=== PATIENT | male | born 1945 | race Caucasian/White ===

== ENCOUNTER 2018-12-13 18:01 | Inpatient (IN) ==
[2018-12-13] MEDS ORDERED: Sod Chloride 0.9% Inj 1,000 ML IV.SIG ONE (18:02)
[2018-12-13] MEDS ORDERED: fentaNYL Citrate Inj 100 MCG/2 ML Ampul IV.PUSH ONE (18:02)
--- NOTE | 2018-12-13 18:10 | ED ---
HPI General Chief complaint: Fall Stated complaint: fall Time Seen by Provider: 12/13/18 18:02 Source: patient, family and EMS Mode of arrival: EMS History of Present Illness HPI narrative: 73yM brought in by EMS after falling off of a ladder at home. The patient states that he was working on a ladder and fell approximately 5 feet. He is not sure if he hit his head but admits to LOC. His daughter heard him fall and called EMS. He currently complains of left back/ shoulder pain. He denies headache, neck pain, chest or abdominal pain. He does not take any anticoagulants or antiplatelets. He thinks his last tetanus booster was 3-4 years ago. Related Data Home Medications Medication Instructions Recorded Confirmed Unable to Obtain Home Meds 12/13/18 12/13/18 Allergies Allergy/AdvReac Type Severity Reaction Status Date / Time No Known Allergies Allergy Verified 12/13/18 18:10 Review of Systems ROS: all other systems reviewed are negative Constitutional Denies fever(s) Eyes Denies blurry vision ENT Denies nasal congestion Cardiovascular Denies chest pain Respiratory Denies cough Gastrointestinal Denies nausea Genitourinary Denies dysuria Musculoskeletal Reports back pain Neurologic Denies confusion Psychiatric Denies confusion PMFSH History History Provided By: Patient Social History Social History Substance History: No History of Abuse Second Hand Smoke Exposure: No Smoking Status: Never smoker How Often Do You Have a Drink Containing Alcohol: Never Recent Travel in [facility] within the Last 8 Weeks: No Recent Out of Country Travel within the Last 8 Weeks: No Exam Const General: healthy appearing and no acute distress [facility] Head: normocephalic and atraumatic Face and sinus: normal facial exam Other: No raccoon eyes or Zelaya's sign No epistaxis or septal hematoma No intraoral trauma Eyes General: appearance normal, both eyes and all related structures Pupils: PERRL Neck Other: No midline C spine tenderness, cervical collar maintained due to distracting injury and mechanism Chest Chest: normal inspection of the chest Resp Effort & Inspection: normal respiratory effort Auscultation: no rhonchi and no wheezes Cardio Rate: regular rate Rhythm: regular rhythm GI Inspection: non-distended Palpation: soft and nontender Back/Spine/Pelvis Other: No midline thoracolumbar tenderness or step-off (+) left thoracic paraspinal tenderness Pelvis stable, leg lengths equal Skin Other: Superficial abrasions to right elbow, left lower leg, right lower leg; no active bleeding Neuro General: alert, awake, oriented x3 and no focal motor deficits Other: GCS 15 Psych Affect: normal affect Course Initial Documented Vital Signs Temperature 97.8 F 12/13/18 18:05 Pulse Rate 60 12/13/18 18:05 Respiratory Rate 20 12/13/18 18:05 Blood Pressure 138/73 12/13/18 18:05 Pulse Oximetry 98 12/13/18 18:05 Last Documented Vital Signs Temperature 97.8 F 12/13/18 18:05 Pulse Rate 60 12/13/18 18:05 Respiratory Rate 18 12/13/18 18:07 Blood Pressure 138/73 12/13/18 18:05 Pulse Oximetry 98 12/13/18 18:05 Medical Decision Making MDM Narrative Medical decision making narrative: Assessment: 73yM presenting after an approximate 5 foot fall off a ladder Plan: Pain control Labs IV fluids [place] CT scan due to mechanism, advanced age, distracting injury Addendum: Patient re-evaluated after negative CT C spine. He has no midline C spine tenderness, no apparent intoxication or altered mental status, no focal neuro deficits, and no distracting injuries. Cervical collar removed. CT scans show elevated of left hemidiaphragm, trace subdiaphragmatic fluid, and borderline splenomegaly concerning for possible occult splenic injury. Case discussed with Dr. Scruggs (trauma), who agrees with keeping patient for observation. I formed the patient and his family of the results of all labs and imaging as well as plan of care; they understand and agree. Medical Screen Exam Complete: Yes Emergency Medical Condition: Yes Differential Diagnosis Differential Diagnosis: Differential diagnosis includes, but is not limited to: ICH, spinal fracture, rib fracture(s), intra-thoracic or intra-abdominal injury , soft tissue contusion Lab Data Lab results reviewed: Yes I reviewed the patient's lab results. Result diagrams: 12/13/18 18:09 12/13/18 18:09 Lab Results 12/13/18 12/13/18 12/13/18 Range/Units 18:09 18:09 18:09 WBC 12.9 H (4.0-11.0) th/mm3 RBC 3.35 L (4.50-5.90) mil/mm3 Hgb 10.5 L (13.0-17.0) gm/dL Hct 30.6 L (39.0-51.0) % MCV 91.3 (80.0-100.0) fL MCH 31.5 (27.0-34.0) pg MCHC 34.5 (32.0-36.0) % RDW 18.2 H (11.6-17.2) % Plt Count 126 L (150-450) th/mm3 MPV 7.2 (7.0-11.0) fL Prelim Diff (Auto) Manual diff required Differential Comment . PT 11.9 H (9.8-11.6) sec INR 1.2 Ratio Sodium 139 (136-145) meq/L Potassium 5.1 (3.5-5.1) meq/L Chloride 107 (98-107) meq/L Carbon Dioxide 27.5 (21.0-32.0) meq/L Anion Gap 5 (5-15) meq/L BUN 25 H (7-18) mg/dL Creatinine 1.22 (0.60-1.30) mg/dL Estimated GFR 58 L (>89) mL/min Random Glucose 123 H (74-106) mg/dL Calcium 8.5 (8.5-10.1) mg/dL Imaging Data Radiologist's impression: Abdomen/Pelvis CT 12/13/18 18:02 CONCLUSION: 1. Elevation of the left hemidiaphragm with trace subdiaphragmatic fluid as described on chest CT report. 2. Mild splenomegaly measuring up to [address] evidence for acute injury. Left subdiaphragmatic fluid does raise the possibility of an occult splenic injury. 3. Cystic central pancreatic mass measuring up to 6.1 x 2.0 cm with diffuse pancreatic ductal dilatation in the body and tail of the pancreas. American considerations include intraductal papillary mucinous neoplasm. Recommend outpatient pancreatic mass protocol MRI exam for further characterization. 4. 4 mm nonobstructing calyceal calculus in the inferior pole of the left kidney. 5. Additional ancillary findings, as above. Cervical Spine CT 12/13/18 18:02 CONCLUSION: 1. No acute fracture or subluxation. 2. Status post anterior fusion at C3-5. 3. Prominent multilevel degenerative spondylosis of the cervical spine. Chest CT 12/13/18 18:02 CONCLUSION: 1. Elevation of the left hemidiaphragm with trace left subdiaphragmatic fluid. This may reflect a chronic finding. Cannot entirely exclude an occult diaphragmatic injury although there are no additional acute findings. Head CT 12/13/18 18:02 CONCLUSION: 1. Negative for acute process . . Discharge Plan Discharge Disposition Patient Disposition: ED Admit(ED Internal Use Only) Discharge Condition Condition: Stable Discharge Order Discharge Orders: ED Use Only Admit Order (Routine); Ordered 12/13/18 Ordered By: Mildred Perez Discharge Details Diagnosis: Fall from ladder, Back pain, Abnormal CT of the abdomen Physicians Team ED Provider: Mildred Perez Rxs /Orders / Referrals /Forms Prescriptions: No Action Unable to Obtain Home Meds RF: 0 Discharge Interventions Interventions: Vital Signs Last Done: 12/13/18 18:07 Status ED Status: Pending Admission
[2018-12-13 18:33] LABS: Hematocrit 30.6 % (39.0-51.0); Hemoglobin 10.5 gm/dL (13.0-17.0); Mean Corpuscular HGB Conc 34.5 % (32.0-36.0); Mean Corpuscular Hemoglobin 31.5 pg (27.0-34.0); Mean Corpuscular Volume 91.3 fL (80.0-100.0); Mean Platelet Volume 7.2 fL (7.0-11.0); Platelet Count 126 th/mm3 (150-450); Red Blood Count 3.35 mil/mm3 (4.50-5.90); Red Cell Distribution Width 18.2 % (11.6-17.2); White Blood Count 12.9 th/mm3 (4.0-11.0)
[2018-12-13 18:46] LABS: Calcium 8.5 mg/dL (8.5-10.1); Carbon Dioxide 27.5 meq/L (21.0-32.0)
[2018-12-13 18:48] LABS: INR 1.2 Ratio; Prothrombin Time 11.9 sec (9.8-11.6)
[2018-12-13 18:57] LABS: Potassium 5.1 meq/L (3.5-5.1)
--- NOTE | 2018-12-13 19:35 | CT ---
EXAM DATE: 12/13/2018 7:32 PM EST AGE/SEX: 73 years / Male INDICATIONS: Fell from ladder, 5 feet. Loss of consciousness. CLINICAL DATA: This is the patient's initial encounter. Patient reports that signs and symptoms have been present for 1 day and indicates a pain score of 8/10. MEDICAL/SURGICAL HISTORY: Hypercholesterolemia. . Cervical fusion. RADIATION DOSE: 56.35 CTDI (mGy) COMPARISON: No prior exams available for comparison. TECHNIQUE: CT of the head without contrast. Using automated exposure control and adjustment of the mA and/or kV according to patient size, radiation dose was kept as low as reasonably achievable to ob tain optimal diagnostic quality images. DICOM format image data is available electronically for revi ew and comparison. FINDINGS: Cerebrum: The ventricles are normal for age. No evidence of midline shift, mass lesion, hemorrhage or acute infarction. No extraaxial fluid collections are seen. Posterior Fossa: The cerebellum and brainstem are intact. The 4th ventricle is midline. The cerebe llopontine angle is unremarkable. Extracranial: The visualized portion of the orbits is intact. Skull: The calvaria is intact. No evidence of skull fracture. CONCLUSION: 1. Negative for acute process . . Electronically signed by: Gonsalo Washington MD Board Certified Radiologist 12/13/2018 7:34 PM EST
--- NOTE | 2018-12-13 19:46 | CT ---
EXAM DATE: 12/13/2018 7:40 PM EST AGE/SEX: 73 years / Male INDICATIONS: Fell from ladder, 5 feet. CLINICAL DATA: This is the patient's initial encounter. Patient reports that signs and symptoms have been present for 1 day and indicates a pain score of 8/10. MEDICAL/SURGICAL HISTORY: Hypercholesterolemia. None. Cervical fusion. RADIATION DOSE: 23.08 CTDI (mGy) COMPARISON: No prior exams available for comparison. TECHNIQUE: Contiguous axial images were obtained using helical multirow detector technique. The vol umetric data was post-processed with multiplanar reconstruction in oblique axial, sagittal, and coron al planes. Using automated exposure control and adjustment of the mA and/or kV according to patient s ize, radiation dose was kept as low as reasonably achievable to obtain optimal diagnostic quality medardo ges. DICOM format image data is available electronically for review and comparison. FINDINGS: OSSEOUS STRUCTURES: Prior anterior plate and screw as well as intradiscal fusion at C3-C5. Hardware a ppears intact. Vertebral body heights are maintained. Osseous structures are intact without evidence for acute bony fracture. Dens is intact. ALIGNMENT: Sagittal alignment is maintained. There is a normal C1-2 relationship. Facets are normal ly aligned. SOFT TISSUES: There is no significant prevertebral soft tissue hematoma. No significant cervical yamilka nopathy or gross mass. The thyroid appears unremarkable. Visualized lung apices are clear without pn eumothorax. ADDITIONAL FINDINGS: Prominent degenerative spondylosis of the cervical spine with prominent anterior osteophytes at C6-7. Posterior disc osteophytes at C6-7 and C7-T1. Bony central canal is patent. Mi ld bony multilevel facet hypertrophy most notably on the left at C7-T1. Bilateral neural foraminal na rrowing at C7-T1. CONCLUSION: 1. No acute fracture or subluxation. 2. Status post anterior fusion at C3-5. 3. Prominent multilevel degenerative spondylosis of the cervical spine. Electronically signed by: Bill Ward MD Board Certified Radiologist 12/13/2018 7:45 PM EST
--- NOTE | 2018-12-13 19:54 | CT ---
EXAM DATE: 12/13/2018 7:43 PM EST AGE/SEX: 73 years / Male INDICATIONS: fell from ladder 5 feet. scapula pain rib pain left chest wall. CLINICAL DATA: This is the patient's initial encounter. Patient reports that signs and symptoms have been present for 1 day and indicates a pain score of 8/10. MEDICAL/SURGICAL HISTORY: Hypercholesterolemia. . Cervical fusion. RADIATION DOSE: 5.37 CTDI (mGy) COMPARISON: No prior exams available for comparison. TECHNIQUE: Multiple contiguous axial images were obtained through the chest during bolus infusion of 95ml ml Omnipaque 350 (iohexol) nonionic water-soluble contrast as a cumulative dose for multiple e xams. Images were obtained in suspended respiration using multiple row detector helical technique. Using automated exposure control and adjustment of the mA and/or kV according to patient size, radia tion dose was kept as low as reasonably achievable to obtain optimal diagnostic quality images. DICO M format image data is available electronically for review and comparison. FINDINGS: Lung: Elevation of the left hemidiaphragm. Minimal groundglass opacities at the lung bases.rrrr 6 mm calcified granuloma at the left lung base. Pleura: No effusion, significant pleural thickening or pneumothorax. Mediastinum: Heart is unremarkable without pericardial effusion. Coronary artery calcifications. No significant mediastinal hematoma. Osseous Structures: Osseous structures are intact without definite acute bony fracture. Multilevel de generative spondylosis of the thoracic spine. Soft Tissues: Soft tissues are unremarkable. No significant axillary adenopathy. Other: Trace left subdiaphragmatic fluid. Partially imaged bilateral renal cysts and nonobstructing calyceal calculus on the left. CONCLUSION: 1. Elevation of the left hemidiaphragm with trace left subdiaphragmatic fluid. This may reflect a ch ronic finding. Cannot entirely exclude an occult diaphragmatic injury although there are no additiona l acute findings. Electronically signed by: Bill Ward MD Board Certified Radiologist 12/13/2018 7:53 PM EST
--- NOTE | 2018-12-13 20:01 | CT ---
EXAM DATE: 12/13/2018 7:46 PM EST AGE/SEX: 73 years / Male INDICATIONS: Fell from ladder, left sided pain. CLINICAL DATA: This is the patient's initial encounter. Patient reports that signs and symptoms have been present for 1 day and indicates a pain score of 8/10. MEDICAL/SURGICAL HISTORY: Hypercholesterolemia. None. Cervical fusion. ORAL CONTRAST: No oral contrast ingested. RADIATION DOSE: 5.37 CTDI (mGy) COMPARISON: No prior exams available for comparison. TECHNIQUE: Multiple contiguous axial images were obtained through the abdomen and pelvis following b olus infusion of 95ml ml Omnipaque 350 (iohexol) nonionic water-soluble contrast as a cumulative do se for multiple exams. No oral contrast ingested. Using automated exposure control and adjustment of the mA and/or kV according to patient size, radiation dose was kept as low as reasonably achievable to obtain optimal diagnostic quality images. DICOM format image data is available electronically for review and comparison. FINDINGS: LOWER LUNGS: Mild groundglass opacities at the lung bases. Elevation of the left hemidiaphragm with trace subdiaphragmatic fluid on the left. LIVER: Subcentimeter hypodense cystic lesion in the inferior right lobe of the liver which is too sm all to fully characterize. Liver otherwise demonstrates uniform density without evidence for acute in jury. SPLEEN: Spleen is enlarged measuring up to 14 cm. There is uniform splenic enhancement. PANCREAS: There is a cystic central pancreatic mass measuring approximately 6.1 x 2.0 cm. More dista lly, there is apparent mild pancreatic ductal dilatation but no tail atrophy. KIDNEYS: Bilateral renal cysts some of which are too small to fully characterize. 4 mm calyceal calc ulus in the inferior pole the left kidney. Kidneys otherwise demonstrate symmetrical enhancement with out evidence for hydronephrosis. No perinephric fluid collections. ADRENAL GLANDS: Unremarkable. AORTA: Beatrice-aneurysmal. BOWEL/MESENTERY: The bowel loops are grossly unremarkable. The cecum and sigmoid colon have a armaan l configuration. No free fluid or drainable fluid collections. No pneumatosis or free air. ABDOMINAL WALL: Intact. RETROPERITONEUM: No evidence of adenopathy in the retrocrural, para-aortic, or deep pelvic regions. BLADDER: Contours are smooth. REPRODUCTIVE: No abnormal masses or calcifications seen. BONY STRUCTURES: Multilevel degenerative spondylosis of the lumbar spine osseous structures appear i ntact without definite acute bony fracture. CONCLUSION: 1. Elevation of the left hemidiaphragm with trace subdiaphragmatic fluid as described on chest CT re port. 2. Mild splenomegaly measuring up to [address] evidence for acute injury. Left sub diaphragmatic fluid does raise the possibility of an occult splenic injury. 3. Cystic central pancreatic mass measuring up to 6.1 x 2.0 cm with diffuse pancreatic ductal dilata tion in the body and tail of the pancreas. [place] considerations include intraductal papillary mucino us neoplasm. Recommend outpatient pancreatic mass protocol MRI exam for further characterization. 4. 4 mm nonobstructing calyceal calculus in the inferior pole of the left kidney. 5. Additional ancillary findings, as above. Electronically signed by: Bill Ward MD Board Certified Radiologist 12/13/2018 8:00 PM EST
[2018-12-13 20:23] LABS: Lymphocytes 14 % (9-44); Metamyelocytes 8 % (0-1); Monocytes 9 % (0-8); Myelocytes 5 % (0-0); Promyelocyte 3 % (0-0); Tallied Nucleated RBC 1 (0-0)
[2018-12-13 20:30] LABS: Ovalocytes 1+; Tear Drop Cells 1+
[2018-12-13 21:02] VITALS: RESP 16
[2018-12-13] MEDS ORDERED: Morphine Inj 4 MG/ML Vial IV.PUSH PRN (22:50)
[2018-12-13] MEDS ORDERED: Pantoprazole Inj 40 MG Vial IV.PUSH SCH (23:00)
[2018-12-13] MEDS ORDERED: Sod Chloride 0.9% Inj 1,000 ML IV.CONT SCH (23:00)
[2018-12-14 07:25] LABS: Hematocrit 25.5 % (39.0-51.0); Hemoglobin 8.7 gm/dL (13.0-17.0); Mean Corpuscular HGB Conc 34.3 % (32.0-36.0); Mean Corpuscular Hemoglobin 31.8 pg (27.0-34.0); Mean Corpuscular Volume 92.7 fL (80.0-100.0); Mean Platelet Volume 7.2 fL (7.0-11.0); Platelet Count 102 th/mm3 (150-450); Red Blood Count 2.75 mil/mm3 (4.50-5.90); Red Cell Distribution Width 18.3 % (11.6-17.2); White Blood Count 8.1 th/mm3 (4.0-11.0)
[2018-12-14 07:39] LABS: Alanine Aminotransferase 17 U/L (12-78); Albumin 3.1 g/dL (3.4-5.0); Anion Gap 6 meq/L (5-15); Aspartate Aminotransferase 23 U/L (15-37); Blood Urea Nitrogen 18 mg/dL (7-18); Calcium 7.8 mg/dL (8.5-10.1); Carbon Dioxide 26.1 meq/L (21.0-32.0); Chloride 109 meq/L (98-107); Glomerular Filtration Rate 69 mL/min (>89); Glucose,Random 98 mg/dL (74-106); Potassium 3.9 meq/L (3.5-5.1); Sodium 141 meq/L (136-145)
[2018-12-14 07:40] LABS: Alkaline Phosphatase 42 U/L (45-117); Total Protein 6.6 g/dL (6.4-8.2)
[2018-12-14 08:43] LABS: Blast Cells 3 % (0-0); Eosinophils 1 % (0-4); Lymphocytes 14 % (9-44); Metamyelocytes 9 % (0-1); Monocytes 15 % (0-8); Myelocytes 6 % (0-0); Tallied Nucleated RBC 3 (0-0)
[2018-12-14 08:45] LABS: Platelet Morphology Normal (Normal)
[2018-12-14] MEDS ORDERED: Duloxetine 60 MG DR Capsule PO SCH (09:00)
[2018-12-14] MEDS ORDERED: Senna/Docusate Sodium 8.6/50 MG Tablet PO SCH (09:00)
[2018-12-14 10:31] LABS: Blast Cells 3 % (0-0)
[2018-12-14 10:33] LABS: Other Cell Type 0 % (0-0)
[2018-12-14 12:33] VITALS: BP 118/61; PULSE 74; TEMP 98.6; O2SAT 97
[2018-12-14 13:04] LABS: Hematocrit 29.9 % (39.0-51.0)
--- NOTE | 2018-12-14 16:16 | P.DS ---
Date of admission: 12/13/18 22:50 Primary care physician: No Primary Care Physician Attending physician on discharge: Irving Scruggs Anticipated date of discharge: 12/14/18 Brief History from admission: Fall from a ladder DS: Diagnosis - Discharge Diagnosis (1) Fall from ladder Status: Acute (2) Back pain Status: Acute (3) Abnormal CT of the abdomen Status: Acute DS: Summary Hospital Course: [place]: This is a 73-year-old male who sustained a fall. He fell off a ladder, approximately 5 feet. Positive LOC. INJURIES: LEFT hemidiaphragm elevation ? splenic injury? *Calcified granuloma LEFT lung * Pancreatic mass (6.1 x 2.0 cm) *LIVER - cystic lesion PMHX; Cervical fusion. Anemia. [facility] Consults: Case management. Patient would really like to go home. A.m. hemoglobin is 8.7. Repeat hemoglobin is 10.0. Patient states he has a history of anemia. Abdomen benign. No signs and symptoms of bleeding. Patient made aware of incidental findings of granuloma in left lung, pancreatic mass, and liver/cystic lesion found in abdominal CT. Patient will be provided a CD of all scans completed at [place], and agrees to follow-up with his PCP regarding these findings. The patient is now tolerating a po diet. Eating and drinking well. Pain is being managed well with PO pain medications, he may continue with OTC Tylenol to manage pain. Patient has a current prescription for tramadol. We have recommended to patient to continue with stool softeners while taking narcotic pain medications to prevent constipation. Pt has been participating in PT while admitted at [place] and has been ambulating with their assistance and independently. No home PT needs All follow up appointments have been provided and discussed with the patient. It is recommended that the patient keeps all his follow up appointments for continued recovery. Patient's condition and plan of care discussed with collaborating trauma surgeon. He is agreeable to plan for discharge today. Therefore, the patient is stable to be safely discharged home from a trauma surgery standpoint. Thank you for allowing us to participate in his care. We wish Artemio the best in his recovery. LEFT hemidiaphragm elevation ? splenic injury? History of anemia Supportive care A.m. hemoglobin = 8.7 Repeat hemoglobin at 12 noon = 10 Abdomen benign No signs and symptoms of active bleeding Transfuse for hemoglobin less than 7.0 Does not meet transfusion triggers at this time Tolerating p.o. diet *Calcified granuloma LEFT lung * Pancreatic mass (6.1 x 2.0 cm) *LIVER - cystic lesion Patient made aware of these incidental findings on his CT chest/abdomen pelvis Patient to obtain CD of radiologic films completed at [place] Patient will follow-up with PCP, and provide radiology CD - Time Spent with Patient Total time spent providing and/or coordinating discharge services: Greater than 30 minutes - Quality: VTE Deep Vein Thrombosis/Pulmonary Embolism Present on Admission: No Exam Vital signs: Vital Signs 12/13/18 18:05 12/13/18 18:07 12/13/18 21:01 Temperature 97.8 F Pulse Rate 60 78 Respiratory Rate 20 18 16 Blood Pressure 138/73 140/78 Pulse Oximetry 98 97 12/13/18 23:30 12/14/18 01:00 12/14/18 04:00 Temperature Pulse Rate 82 63 Respiratory Rate 16 21 16 Blood Pressure 155/82 H 113/58 L Pulse Oximetry 97 95 12/14/18 08:00 12/14/18 12:00 Temperature 99.0 F 98.6 F Pulse Rate 61 74 Respiratory Rate 16 16 Blood Pressure 129/76 118/61 Pulse Oximetry 96 97 Intake & Output 12/13/18 12/14/18 12/14/18 18:59 06:59 18:59 Intake Total 1000 / 1000 1000 / 1000 Balance 1000 / 1000 1000 / 1000 Weight 79.379 kg 79.37 kg Intake: IV 1000 / 1000 1000 / 1000 NS Inj 1,000 ML @ 100 mls/hr IV 1000 / 1000 .CONT .Q10H ANUJA Rx#:[id number] NS Inj 1,000 ML @ Wide Open IV. 1000 / 1000 SIG BOLUS ONE Rx#:[id number] Other: # Voids 1 Date of Last Bowel Movement 12/13/18 Weight On Admission 79.37 kg Narrative: GENERAL: This is a 73-year-old male, sitting in room playing on his phone. No distress noted. SKIN: Warm and dry. HEAD: Atraumatic. Normocephalic. EYES: PERRLA ENT: No nasal bleeding or discharge. Mucous membranes pink and moist. NECK: Trachea midline. No JVD. CARDIOVASCULAR: Regular rate and rhythm. RESPIRATORY: No accessory muscle use. Lungs are clear to auscultation. Breath sounds equal bilaterally. No distress or dyspnea. GASTROINTESTINAL: BS + x 4 quads. Abdomen soft, non-tender, nondistended. MUSCULOSKELETAL: Extremities without cyanosis, or edema. + peripheral pulses x 4 extremities. Warm with good capillary refill and sensation. MAEW. NEUROLOGICAL: Awake and alert. Normal speech and pattern. Results Procedures completed during hospitalization: . Labs on day of discharge: Labs from last 24 hours 12/14/18 12/14/18 12/14/18 12:43 07:00 07:00 WBC 8.1 RBC 2.75 L Hgb 10.0 L 8.7 L Hct 29.9 L 25.5 L MCV 92.7 MCH 31.8 MCHC 34.3 RDW 18.3 H Plt Count 102 L MPV 7.2 Prelim Diff (Auto) Manual diff required WBC Differential Manual diff final Seg Neuts % (Manual) 36 Band Neuts % (Manual) 16 H Lymphocytes % (Manual) 14 Monocytes % (Manual) 15 H Eosinophils % (Manual) 1 Basophils % (Manual) Metamyelocytes % (Man) 9 H Myelocytes % (Man) 6 H Promyelocytes % (Man) Blast Cells % (Manual) 3 H Other Cells % Abs Neuts (Manual) 5.4 Nucleated RBCs/100 WBC 3 H Differential Comment . Platelet Estimate Low L Platelet Morphology Normal Tear Drop Cells Ovalocytes Keratocytes PT INR Sodium 141 Potassium 3.9 D Chloride 109 H Carbon Dioxide 26.1 Anion Gap 6 BUN 18 Creatinine 1.05 Estimated GFR 69 L Random Glucose 98 Calcium 7.8 L Total Bilirubin 0.6 AST 23 ALT 17 Alkaline Phosphatase 42 L Total Protein 6.6 Albumin 3.1 L 12/13/18 12/13/18 12/13/18 18:09 18:09 18:09 WBC 12.9 H RBC 3.35 L Hgb 10.5 L Hct 30.6 L MCV 91.3 MCH 31.5 MCHC 34.5 RDW 18.2 H Plt Count 126 L MPV 7.2 Prelim Diff (Auto) Manual diff required WBC Differential Manual diff final Seg Neuts % (Manual) 45 Band Neuts % (Manual) 9 H Lymphocytes % (Manual) 14 Monocytes % (Manual) 9 H Eosinophils % (Manual) Basophils % (Manual) 4 H Metamyelocytes % (Man) 8 H Myelocytes % (Man) 5 H Promyelocytes % (Man) 3 H Blast Cells % (Manual) 3 H Other Cells % 0 Abs Neuts (Manual) 9.0 H Nucleated RBCs/100 WBC 1 H Differential Comment . Platelet Estimate Low L Platelet Morphology Enlarged H Tear Drop Cells 1+ H Ovalocytes 1+ H Keratocytes Occ H PT 11.9 H INR 1.2 Sodium 139 Potassium 5.1 Chloride 107 Carbon Dioxide 27.5 Anion Gap 5 BUN 25 H Creatinine 1.22 Estimated GFR 58 L Random Glucose 123 H Calcium 8.5 Total Bilirubin AST ALT Alkaline Phosphatase Total Protein Albumin - Impressions ITS Impressions Abdomen/Pelvis CT 12/13/18 18:02 CONCLUSION: 1. Elevation of the left hemidiaphragm with trace subdiaphragmatic fluid as described on chest CT report. 2. Mild splenomegaly measuring up to [address] evidence for acute injury. Left subdiaphragmatic fluid does raise the possibility of an occult splenic injury. 3. Cystic central pancreatic mass measuring up to 6.1 x 2.0 cm with diffuse pancreatic ductal dilatation in the body and tail of the pancreas. English considerations include intraductal papillary mucinous neoplasm. Recommend outpatient pancreatic mass protocol MRI exam for further characterization. 4. 4 mm nonobstructing calyceal calculus in the inferior pole of the left kidney. 5. Additional ancillary findings, as above. Cervical Spine CT 12/13/18 18:02 CONCLUSION: 1. No acute fracture or subluxation. 2. Status post anterior fusion at C3-5. 3. Prominent multilevel degenerative spondylosis of the cervical spine. Chest CT 12/13/18 18:02 CONCLUSION: 1. Elevation of the left hemidiaphragm with trace left subdiaphragmatic fluid. This may reflect a chronic finding. Cannot entirely exclude an occult diaphragmatic injury although there are no additional acute findings. Head CT 12/13/18 18:02 CONCLUSION: 1. Negative for acute process . . Discharge Plan - Discharge Disposition Patient Disposition: Discharge Home - Discharge Condition Condition: Stable - Discharge Order Discharge Orders: Discharge Order (Routine); Ordered 12/14/18 Ordered By: Kaorlina Schultz - Discharge Details Anticipated Discharge Date: 12/14/18 Discharge Comment: Make sure patient has radiology CD of hospital scans to bring to his PCP - Physicians Team Primary Care Provider: Primary Care Steffanie,Hillary Attending Provider: Irving Scruggs Other Providers: London Turner MD ; Sachin Hill MD ; [employer] [employer] ; Irving Scruggs MD ; Karolina Schultz ARNP ; Tutu Martínez MD ; Mildred Louis MD ; Jerry Chung ARNP ; Kelly Castellanos MD
--- NOTE | 2018-12-14 18:26 | MH ---
cc: Irving Scruggs MD DATE OF ADMISSION: 12/13/2018 HISTORY OF PRESENT ILLNESS: This is a 73-year-old male who was brought to the hospital by EMS after falling off a ladder approximately 5 feet up. The patient was evaluated by the emergency room physician, found to have fluid around his spleen and splenomegaly. Trauma service was requested for observation. The patient, on my evaluation, is lying in bed. He is complaining of pain in his left back and shoulders. No chest pain, no shortness of breath. No abdominal pain. ALLERGIES: HE HAS NO KNOWN DRUG ALLERGIES. MEDICATIONS: He is unsure of his medications. SOCIAL HISTORY: He does not smoke. FAMILY HISTORY: Noncontributory. REVIEW OF SYSTEMS: Significant for above. PHYSICAL EXAMINATION: HEENT: Pupils are equal and reactive. His trachea is midline. NECK: Without JVD. RESPIRATIONS: Clear. CARDIOVASCULAR: Regular. GASTROINTESTINAL: Soft, nontender. MUSCULOSKELETAL: No deformities. NEUROLOGIC: Nonfocal. RADIOLOGICAL IMAGINES: CT of the patient's head: Negative. CT of the cervical spine: No acute fracture or subluxation. CT of the chest: Elevated left hemidiaphragm. CT of the abdomen and pelvis reveals splenomegaly with subdiaphragmatic fluid, pancreatic mass. ASSESSMENT: This is a patient status post fall with left-sided soft tissue contusion, as well as some intraabdominal fluid around the spleen. PLAN: Observe the patient. Repeat a CBC. Serial abdominal exams. Monitor respiratory status. Irving Scruggs MD JLJose [email or web address]/navdeep , 05:28 PM , 05:33 PM
== END 2018-12-14 17:25 | disposition home or self-care (01) | DRG 965 ==
LOC: NEDA 18:01 → NEPI 18:01 → NEPFCDU 22:34
PROVIDERS: ADMIT Surgery; ATTEND Surgery
CPT/HCPCS: 70450; 71260; 72125; 74177; 80048; 80053; 85014; 85018; 85025; 85610; 90761; 90774; 90784; 94150; 96361; 96374; 97162; 99285; C8952; C9113; J3010; J7030; Q9967